=== PATIENT | male | born 1985 | race Caucasian/White ===

== ENCOUNTER 2017-07-01 15:19 | Emergency (ER) | END 2017-07-01 15:38 | disposition left against medical advice (07) ==

== ENCOUNTER 2018-06-22 15:07 | Emergency (ER) | payer BC, OTHER ==
[~2018-06-22] VITALS: Wt 73.3 kg
[~2018-06-22 15:07] MED LIST: AZIT250T PO; CIPR500T4 PO; IBUP-1542 PO; IBUP800T48 PO; METR500T PO; PROM6.25 PO; TYL500 PO
[2018-06-22 15:15] VITALS: BP 129/81; PULSE 76; RESP 19
[2018-06-22] MEDS ORDERED: SOD CHLORIDE 0.9% 1,000 ML IV STA (15:54)
[2018-06-22] MEDS ORDERED: ONDANSETRON 4 MG INJ IV STA (15:54)
[2018-06-22] MEDS ORDERED: LORAZEPAM 2 MG INJ IV ONE (16:00)
[2018-06-22] MEDS ORDERED: LORA1TAB PO (17:23)
[2018-06-22] MEDS ORDERED: ONDA8TAB14 PO (17:23)
[2018-06-22] MEDS ORDERED: DEXAMETHASONE 10 MG/ML 1 ML INJ IV ONE (17:30)
--- NOTE | 2018-06-22 17:30 | ERD ---
ER Documentation Chief Complaint Chief Complaint bib self, cc: vertigo x 3 days, taking nausea medication with no help HPI 33-year-old male presents with spinning type dizziness which is reproducible with head movement for the last 3 days. Was seen at another hospital. He was told he had blood work, head scan done. He was prescribed an unspecified medication for nausea, possibly Zofran. He has persistent dizziness and nausea and vomiting. Denies any deficits or weakness or history of injury or fevers. Denies any recent URIs. ROS All systems reviewed and are negative except as per history of present illness. Medications Home Meds Active Scripts Ondansetron (Ondansetron Odt) 8 Mg Tab.rapdis, 8 MG PO Q6H PRN for NAUSEA AND/OR VOMITING, #10 TAB Prov:JOVAN MACIAS MD 06/22/18 Lorazepam* (Lorazepam*) 1 Mg Tablet, 1 MG PO Q8, #10 TAB Prov:JOVAN MACIAS MD 06/22/18 Promethazine w/Codeine* (Phenergan w/Codeine* Syrup) 5 Ml Syrup, 10 ML PO QHS PRN for COUGH, #60 ML Prov:GABINO DURAN PA-C 07/23/15 Ibuprofen* (Motrin*) 600 Mg Tab, 600 MG PO Q6H PRN for PAIN AND OR ELEVATED TEMP, #30 TAB Prov:GABINO DURANC 07/23/15 Acetaminophen* (Tylenol*) 500 Mg Tab, 500 MG PO Q4H PRN for MILD PAIN LEVEL 1-3, #30 TAB Prov:GABINO DURAN PA-C 07/23/15 Azithromycin* (Zithromax*) 250 Mg Tablet, 250 MG PO .ZPACK DIRECTED, #6 TAB TAKE 500 MG (2 TABS) THE FIRST DAY THEN 250 MG (1 TAB) DAYS 2-5 Prov:GABINO DURAN PA-C 07/23/15 Ibuprofen* (Motrin*) 800 Mg Tab, 800 MG PO Q6H PRN for PAIN AND OR ELEVATED T EMP, #30 TAB Prov:DAMEON MARCIAL NP 03/12/15 Metronidazole* (Flagyl*) 500 Mg Tablet, 500 MG PO TID for 7 Days, TAB Prov:JUVENAL VALENCIA JAKI 11/20/14 Reported Medications Ciprofloxacin Hcl* (Ciprofloxacin Hcl*) 500 Mg Tablet, 500 MG PO BID, TAB 11/20/14 Allergies Allergies: Coded Allergies: No Known Allergy (Verified , 07/23/15) PMhx/Soc History of Surgery: Yes (APPENDECTOMY,HERNIA SURGERY) Anesthesia Reaction: No Hx Neurological Disorder: No Hx Respiratory Disorders: No Hx Cardiac Disorders: No Hx Psychiatric Problems: No Hx Miscellaneous Medical Probl: Yes (diverticulitis) Hx Substance Use: No Hx Tobacco Use: Yes (Quit 1 yr ago) Smoking Status: Current some day smoker FmHx Family History: No diabetes, No coronary disease, No other Physical Exam Vitals Vital Signs Date Temp Pulse Resp B/P (MAP) Pulse Ox O2 O2 Flow FiO2 Time Delivery Rate 06/22/18 97.0 76 19 129/81 97 15:15 (97) Physical Exam Const: No acute distress. Uncomfortable due to nausea and presumed vertigo. Head: Atraumatic Eyes: Normal Conjunctiva ENT: Normal External Ears, Nose and Mouth. Neck: Full range of motion. No meningismus. Resp: Clear to auscultation bilaterally Cardio: Regular rate and rhythm, no murmurs Abd: Soft, non tender, non distended. Normal bowel sounds Skin: No petechiae or rashes Back: No midline or flank tenderness Ext: No cyanosis, or edema Neur: Awake and alert. No cerebellar signs. No abnormalities uncover uncover or sits exam to suggest central vertigo. Psych: Normal Mood and Affect Result Diagram: 06/22/18 1635 06/22/18 1635 Results 24 hrs Laboratory Tests Test 06/22/18 16:35 White Blood Count 16.6 10^3/ul Red Blood Count 5.52 10^6/ul Hemoglobin 17.5 g/dl Hematocrit 50.4 % Mean Corpuscular Volume 91.3 fl Mean Corpuscular Hemoglobin 31.7 pg Mean Corpuscular Hemoglobin Concent 34.7 g/dl Red Cell Distribution Width 12.5 % Platelet Count 368 10^3/UL Mean Platelet Volume 9.3 fl Immature Granulocytes % 0.600 % Neutrophils % 84.0 % Lymphocytes % 10.3 % Monocytes % 3.9 % Eosinophils % 0.8 % Basophils % 0.4 % Nucleated Red Blood Cells % 0.0 /100WBC Immature Granulocytes # 0.100 10^3/ul Neutrophils # 14.0 10^3/ul Lymphocytes # 1.7 10^3/ul Monocytes # 0.7 10^3/ul Eosinophils # 0.1 10^3/ul Basophils # 0.1 10^3/ul Nucleated Red Blood Cells # 0.0 10^3/ul Sodium Level 142 mmol/L Potassium Level 3.8 mmol/L Chloride Level 101 mmol/L Carbon Dioxide Level 28 mmol/L Anion Gap 13 Blood Urea Nitrogen 9 mg/dl Creatinine 0.78 mg/dl Est Glomerular Filtrat Rate mL/min > 60 mL/min Glucose Level 105 mg/dl Calcium Level 9.5 mg/dl Total Bilirubin 0.4 mg/dl Direct Bilirubin 0.00 mg/dl Indirect Bilirubin 0.4 mg/dl Aspartate Amino Transf (AST/SGOT) 33 IU/L Alanine Aminotransferase (ALT/SGPT) 45 IU/L Alkaline Phosphatase 98 IU/L Total Protein 7.7 g/dl Albumin 4.5 g/dl Globulin 3.20 g/dl Albumin/Globulin Ratio 1.40 Current Medications Medications Dose Sig/[place] Start Time Status Last (Trade) Ordered Route PRN Stop Time Admin Dose Reason Admin Sodium 1,000 ml @ Q1H STAT 06/22/18 DC 06/22/18 Chloride 1,000 mls/hr IV 15:54 16:11 06/22/18 16:53 Ondansetron 4 mg ONCE STAT 06/22/18 DC 06/22/18 HCl (Zofran IV 15:54 16:13 Inj) 06/22/18 15:56 Lorazepam 1 mg ONCE ONCE 06/22/18 DC 06/22/18 (Ativan) IV 16:00 16:13 06/22/18 16:01 8 mg ONCE ONCE 06/22/18 Dexamethasone IV 17:30 (Decadron) 06/22/18 17:31 Procedures/MDM CBC shows mild leukocytosis, CMP normal. CT brain shows no acute abnormalities. EKG: Rate/Rhythm: Normal Sinus Rhythm. Rate equals 67 QRS, ST, T-waves: No changes consistent w/ acute ischemia Impression: No evidence of ischemia or arrhythmia. Impression-normal EKG She was given 1 L normal saline IV, Zofran 4 mg IV and Ativan 1 mg IV. Clinical. Much better without active nausea, dizziness or vomiting on serial exam. Patient mild reproducible vertigo to the right. Patient was educated on Chintan maneuver foot appears to be reproducible peripheral vertigo. He was given Decadron 8 mg IV for possible serous otitis. We discharged home with a short course of Ativan and Zofran and recommendations for Chintan maneuver, primary care follow-up, ENT evaluation for persistent symptoms and return precautions. The patient was stable with no new complaints during the ER course. Clinically, there is no current evidence to suggest meningitis, sepsis, acute abdomen, pneumonia, stroke, acute coronary syndrome, pulmonary embolism, aortic dissection or any other emergent condition appearing to require further evaluation or hospitalization. Patient counseled regarding my diagnostic impression and care plan. Prior to discharge all questions answered. Pt agrees with treatment plan and understands strict return precautions. Pt is instructed to follow up with primary care provider within 24-48 hours. Precautionary instructions provided including instructions to return to the ER if not improving or for any worsening or changing symptoms or concerns. Departure Diagnosis: Primary Impression: Vertigo Condition: Stable Patient Instructions: Inner Ear Problems: Causes of Dizziness (Vertigo), Vertigo, Unspecified Referrals: NO PRIMARY,CARE PHYSICIAN (PCP) JUAN HARRISON MD Additional Instructions: Recommend Chintan over at home. Recheck with primary doctor and possibly urinary throat specialist. Recheck otherwise for new or worsening symptoms. Examination show no emergent causes identified today. JOVAN MACIAS MD Jun 22, 2018 17:30
== END 2018-06-22 17:58 | disposition home or self-care (01) ==
LOC: FTE 15:07
DX: R55 Syncope and collapse (principal); F17.210 Nicotine dependence, cigarettes, uncomplicated
CPT/HCPCS: 36415; 70450; 80053; 85025; 96374; 96375; 99285; J1100; J2060; J2405; J7030; 93005